=== PATIENT | male | born 1965 | race Caucasian/White ===

== ENCOUNTER 2018-04-20 10:43 | Day surgery (SDC) | payer OTHER ==
[2018-04-20] MEDS ORDERED: ceFAZolin 2 GM/DEXTROSE 100 ML IV ONE (10:54)
[2018-04-20] MEDS ORDERED: LR 1,000 ML IV ONE (10:54)
[2018-04-20] MEDS ORDERED: LIDOCAINE 1% 2 ML INJ ID PRN (10:54)
[2018-04-20] MEDS ORDERED: BUPIVACAINE 0.5% 30 ML SDV ONE (11:35)
[2018-04-20] MEDS ORDERED: MIDAZOLAM 2 MG/2 ML VIAL IVP ONE (12:15)
--- NOTE | 2018-04-20 12:15 | PDANEPAE ---
ANE History of Present Illness Bunion ANE Past Medical History - Cardiovascular History Hx Hypertension: No Hx Arrhythmias: No Hx Chest Pain: No Hx Coronary Artery / Peripheral Vascular Disease: No Hx CHF / Valvular Disease: No Hx Palpitations: No Cardiovascular History Comment: BP runs borderline high 130's/80's - Pulmonary History Hx COPD: No Hx Asthma/Reactive Airway Disease: No Hx Recent Upper Respiratory Infection: No Hx Oxygen in Use at Home: No Hx Sleep Apnea: Yes Sleep Apnea Screening Result - Last Documented: Positive - Neurologic History Hx Cerebrovascular Accident: No Hx Seizures: No Hx Dementia: No - Endocrine History Hx Diabetes: No - Renal History Hx Renal Disorders: No - Liver History Hx Hepatic Disorders: No - Neurological & Psychiatric Hx Hx Neurological and Psychiatric Disorders: Yes Neurological / Psychiatric History Comment: depression/anxiety - Cancer History Hx Cancer: No - Congenital Disorder History Hx Congenital Disorders: No - GI History Hx Gastrointestinal Disorders: No - Other Health History Other Health History: ezma left calf - Chronic Pain History Chronic Pain: No - Surgical History Prior Surgeries: septoplasty 2018. colonoscopy ANE Review of Systems Review of Systems: - Exercise capacity METS (RN): 5 METS ANE Patient History - Allergies Allergies/Adverse Reactions: codeine Allergy (Verified 04/15/18 10:29) Rash Penicillins Allergy (Verified 04/15/18 10:29) Rash - Home Medications Home medications: home medication list seen and reviewed Home Medications: lamoTRIgine [LamICTAL 100 MG (*)] 11/14/17 [Last Taken 04/20/18 05:30] Acetaminophen [Tylenol 325mg (*)] 04/15/18 [Last Taken 1 Week Ago ~04/13/18] Fish Oil 1000 mg (*) 04/15/18 [Last Taken 04/18/18] Glucosamine 04/15/18 [Last Taken 04/18/18] Multivitamin 04/15/18 [Last Taken 04/18/18] Sinatrol 04/15/18 [Last Taken 04/20/18 05:00] - NPO status NPO Since - Liquids (Date): 04/20/18 NPO Since - Liquids (Time): 08:30 NPO Since - Solids (Date): 04/19/18 NPO Since - Solids (Time): 21:00 - Anes Hx Anes Hx: no prior problems - Smoking Hx Smoking Status: Never smoked - Family Anes Hx Family Hx Anesthesia Complications: none ANE Labs/Vital Signs - Labs Result Diagrams: 04/20/18 11:15 - Vital Signs Blood Pressure: 126/79 Heart Rate: 72 Respiratory Rate: 18 O2 Sat (%): 96 Height: 177.8 cm Weight: 81.647 kg ANE Physical Exam - Airway Neck exam: FROM Mallampati Score: Class 2 Mouth exam: normal dental/mouth exam - Pulmonary Pulmonary: no respiratory distress - Cardiovascular Cardiovascular: regular rate and rhythym - ASA Status ASA Status: II ANE Anesthesia Plan Anesthesia Plan: MAC
--- NOTE | 2018-04-20 12:16 | PDHPUP ---
History & Physical Update H&P update statement: This history and physical update is based on an assessment of the patient which was completed after admission or registration (within 24 hours), but prior to the surgery/procedure. H&P update: H&P reviewed & patient examined, no change in patient's condition since H&P completed
[2018-04-20] MEDS ORDERED: MIDAZOLAM 2 MG/2 ML VIAL ONE (12:23)
[2018-04-20] MEDS ORDERED: PROPOFOL/EMULSION 500 MG/50 ML BOTTLE IV ONE (12:27)
[2018-04-20] MEDS ORDERED: PROPOFOL 200 MG/20 ML VIAL ONE (12:27)
[2018-04-20] MEDS ORDERED: LIDOCAINE 2% 5 ML SDV ONE (12:27)
[2018-04-20] MEDS ORDERED: DEXAMETHASONE 4 MG/ML VIAL ONE (12:34)
[2018-04-20] MEDS ORDERED: ONDANSETRON 4 MG/2 ML VIAL IVP PRN ×2 (12:53→14:54)
[2018-04-20] MEDS ORDERED: fentaNYL 100 MCG/2 ML INJ IVP PRN (12:53)
[2018-04-20] MEDS ORDERED: NALOXONE HCL 0.4 MG/ML INJ IVP PRN (12:53)
--- NOTE | 2018-04-20 13:25 | POSTANESTH ---
Post Anesthetic Evaluation Cardiovascular Status: Similar to Pre-Op Cond Respiratory Status: Similar to Pre-op Cond. Level of Consciousness/Mental Status: Alert and Oriented Pain Control: Adequate, Prn Tx Ordered Nausea/Vomiting Control: Adequate, Prn Tx Ordered Complications Possibly Related to Anesthesia: None Noted
[2018-04-20 14:47] VITALS: BP 127/77
[2018-04-20] MEDS ORDERED: ONDANSETRON DISINTEGRATING 4 MG TAB PO PRN (14:54)
--- NOTE | 2018-04-21 14:05 | GOP ---
[f rep st] OPERATIVE REPORT DATE OF OPERATION: 04/20/2018 SURGEON: Zac Ricketts DPM CASH APPLICATION REPRESENTATIVE: None. ANESTHESIA: MAC with local, 20 mL of 0.5% Marcaine plain. PREOPERATIVE DIAGNOSIS: 1. Hallux rigidus, left foot. 2. Transient cellulitis, left foot. 3. Loose body in joint, left foot. POSTOPERATIVE DIAGNOSIS: 1. Hallux rigidus, left foot. 2. Transient cellulitis, left foot. 3. Loose body in joint, left foot. PROCEDURE PERFORMED: FINDINGS: Gross findings are consistent with the diagnosis. ESTIMATED BLOOD LOSS: Zero. INDICATIONS: Patient with a long-standing history of pain in the left big toe joint. The patient park s failed nonsurgical treatment including different shoes, a few inserts, ice, anti-inflammatory medic ations, rest, and activity modification, has not achieved adequate relief, and has elected to undergo surgical intervention at this time. DESCRIPTION OF PROCEDURE: The patient was brought into the operating room and placed on the operatin g room table in the supine position. Following IV sedation, local anesthesia was obtained around the patient's left foot utilizing a total of 20 mL of 0.5% Marcaine plain. The foot was then scrubbed, prepped, and draped in the usual aseptic manner. Pneumatic ankle tourniquet was placed on the marielyen t's left ankle with ample Webril padding. An Esmarch bandage was utilized to exsanguinate the patien t's left lower extremity, and the pneumatic ankle tourniquet was then inflated. Attention was direct ed to the medial aspect of the patient's left foot, where a 5 cm linear longitudinal incision was mad e at the medial aspect of the 1st metatarsophalangeal joint. This incision was deepened through the subcutaneous tissue to the level of the joint capsule, with care being taken identify and retract all vital neural and vascular structures. Bleeders were ligated and cauterized as necessary. _ 1st metatarsophalangeal joint. Capsular structures were reflected dorsally and plantarly, thus exp osing the 1st metatarsophalangeal joint at the operative site. It was noted that there were loose ca rtilaginous bodies within the joint which were excised and passed from the operative field. The join t was evaluated, and there was a large area, approximately 8 mm x 8 mm at the 1st metatarsal head whi ch was denuded of cartilage. A decision to put a 1st metatarsal head implant in was made, and a K-wi re was driven down the shaft to the 1st metatarsal bone to serve as a guidepin. After sizing, a 10 m m implant was selected. The 10 mm drill was used to make an aperture for this implant within the 1st metatarsal head. The K-wire was removed, and the implant was inserted in the standard technique via Cartiva. It was noted that the implant was approximately 3-4 mm proud at the 1st metatarsophalangea l joint at this time. The joint was put through range of motion. Range of motion was noted to be ex cellent, with no bony apposition. All bone spurs were excised and passed from the operative field. All remaining rough edges of the bone were smoothed with a bone bur. The surgical site was then flus hed with normal sterile saline solution. The capsular structures were approximated utilizing a 3-0 V icryl. The skin was reapproximated utilizing a 5-0 Vicryl in a running subcuticular suture technique . 4 mg of dexamethasone was injected into the operative site at the conclusion of this procedure. T he incision site was dressed with Steri-Strips, 4x4 gauze, Webril, Michi, and an Neno bandage. The pa tient was transported to postop recovery, with vital signs stable and vascular status intact to the l t lower extremity. The patient tolerated the procedure and anesthesia well. HEMOSTASIS: Left pneumatic ankle tourniquet, inflated to 250 mmHg for 27 minutes. MATERIALS: Cartiva implant size 10. 3-0 and 5-0 Vicryl. INJECTABLES: 4 mg of dexamethasone. CONDITION: Stable. /[id number]/MODL
== END 2018-04-20 15:55 | disposition home or self-care (01) ==
LOC: FSGY 10:43
PROVIDERS: ATTEND Podiatrist
PROC: 0SRN0JZ Replacement of Left Metatarsal-Phalangeal Joint with Synthetic Substitute, Open Approach (ICD-10-PCS; principal; 2018-04-20 12:30)
DX: M20.22 Hallux rigidus, left foot (principal); M24.075 Loose body in left toe joint(s); F32.9 Major depressive disorder, single episode, unspecified; Z88.0 Allergy status to penicillin
CPT/HCPCS: J0690; J1100; J2250; J2704